=== PATIENT | female | born 1985 | race Caucasian/White ===

== ENCOUNTER 2023-02-22 02:21 | Emergency (ER) | payer MEDICAID ==
--- NOTE | 2023-02-22 02:35 | NUR ---
PATIENT CALL FOR TRIAGE, NO RESPONSE
--- NOTE | 2023-02-22 02:40 | NUR ---
CALLED FOR THE SECOND TIME , NO RESPONSE
--- NOTE | 2023-02-22 02:45 | NUR ---
CALLED FOR THE THIRD TIME , NO RESPONSE
== END 2023-02-22 02:35 | disposition left against medical advice (07) ==
LOC: MED 02:21
DX: M54.50 Low back pain, unspecified (principal); R50.9 Fever, unspecified; Z53.21 Procedure and treatment not carried out due to patient leaving prior to being seen by health care provider

== ENCOUNTER 2024-01-02 19:53 | Emergency (ER) | payer MEDICAID ==
[~2024-01-02] VITALS: Ht 160 cm; Wt 59.0 kg
[2024-01-02 20:40] VITALS: BP 128/84; PULSE 114; RESP 20; TEMP 97.4; O2SAT 99
[2024-01-02 21:24] LABS: BASOPHILS # (AUTO) 0.1 K/uL (0.00-0.22); BASOPHILS % (AUTO) 0.6 % (0.0-2.0); EOSINOPHILS # (AUTO) 0.2 K/uL (0-0.4); EOSINOPHILS % (AUTO) 1.9 % (0.0-4.0); HEMATOCRIT 36.6 % (36-48); HEMOGLOBIN 12.3 g/dL (12.0-16.0); LYMPHOCYTES # (AUTO) 2.3 K/uL (2.5-16.5); LYMPHOCYTES % (AUTO) 22.5 % (20.5-51.1); MEAN CORPUSCULAR HEMOGLOBIN 31 pg (27-31); MEAN CORPUSCULAR HGB CONC 34 g/dL (33-37); MEAN CORPUSCULAR VOLUME 91.4 fL (80-94); MONOCYTES # (AUTO) 0.7 K/uL (0.8-1.0); MONOCYTES % (AUTO) 7.1 % (1.7-9.3); NEUTROPHILS % (AUTO) 67.9 % (42.2-75.2); PLATELET COUNT (AUTO) 362 K/uL (140-450); RED CELL DISTRIBUTION WIDTH 14.8 % (11.6-13.7); WHITE BLOOD COUNT (AUTO) 10.4 K/uL (4.8-10.8)
[2024-01-02 22:47] LABS: APPEARANCE,URINE CLEAR (CLEAR); BILIRUBIN,URINE NEGATIVE (NEGATIVE); BLOOD, URINE 3+ (NEGATIVE); COLOR,URINE YELLOW (YELLOW); LEUKOCYTE ESTERASE ,URINE NEGATIVE (NEGATIVE); NITRITE, URINE NEGATIVE (NEGATIVE); PROTEIN,URINE NEGATIVE (NEGATIVE); UGLUCOSE NEGATIVE (NEGATIVE); UROBILINOGEN,URINE 0.2 EU/dL (0.2 - 1)
[2024-01-02] MEDS ORDERED: NAPR-337 PO (22:55)
[2024-01-02 22:59] LABS: RBC,URINE 11-20 (MOD) /HPF (0-5); WBC,URINE 0-5 /HPF (0-5)
[2024-01-02 23:00] LABS: BACTERIA,URINE 10-30 (MOD) /HPF (None Seen); MUCUS,URINE 1+ /LPF (None Seen); SQUAMOUS EPITHELIAL CELL,UR 0-3 (FEW) /LPF (0-3 (FEW))
[2024-01-02] MEDS: IBUPROFEN 600 MG TAB PO ONE (23:08)
== END 2024-01-02 23:06 | disposition home or self-care (01) ==
LOC: MED 19:53
DX: N93.9 Abnormal uterine and vaginal bleeding, unspecified (principal); Z79.899 Other long term (current) drug therapy
CPT/HCPCS: 36415; 76830; 81001; 85025; 87086; 99284